=== PATIENT | male | born 1945 | race Caucasian/White ===

== ENCOUNTER 2023-06-22 11:51 | Emergency (ER) | payer MEDICARE ==
[~2023-06-22] VITALS: Ht 177.8 cm; Wt 78.2 kg
[2023-06-22 11:54] VITALS: TEMP 97.4
[2023-06-22 12:24] LABS: BASOPHILS # (AUTO) 0.1 X10'3 (0-0.2); EOSINOPHILS # (AUTO) 0.1 X10'3 (0-0.9); EOSINOPHILS % (AUTO) 0.7 % (0-6); HEMATOCRIT 48.6 % (42.0-52.0); HEMOGLOBIN 16.1 g/dl (14.0-17.9); LYMPHOCYTES # (AUTO) 0.8 X10'3 (1.1-4.8); LYMPHOCYTES % (AUTO) 8.2 % (21-51); MEAN CORPUSCULAR HEMOGLOBIN 30.4 PG (27.0-31.0); MEAN CORPUSCULAR HGB CONC 33.1 g/dL (33.0-36.5); MEAN PLATELET VOLUME 8.2 FL (7.4-10.4); MONOCYTES # (AUTO) 0.8 X10'3 (0-0.9); MONOCYTES % (AUTO) 7.9 % (2-12); NEUTROPHILS # (AUTO) 8.2 X10'3 (1.8-7.7); NEUTROPHILS % (AUTO) 82.2 % (42-75); PLATELET COUNT 295 X10'3 (140-440); RED BLOOD COUNT 5.29 X10'6 (4.70-6.10); RED CELL DISTRIBUTION WIDTH 13.8 % (11.5-14.5)
[2023-06-22 12:36] LABS: ALBUMIN 3.6 G/DL (3.4-5.0); ANION GAP 10 (8-16); BLOOD UREA NITROGEN 25 MG/DL (7-18); BUN/CREATININE RATIO 12.4 (10.0-20.0); CALCIUM 9.6 MG/DL (8.5-10.1); CHLORIDE 108 MMOL/L (99-107); CREATININE 2.01 MG/DL (0.60-1.10); GLUCOSE 135 MG/DL (70-104); LIPASE 33 U/L (16-77); POTASSIUM 4.1 MMOL/L (3.5-5.1); SODIUM 149 MMOL/L (135-145); TOTAL CARBON DIOXIDE 30.8 MMOL/L (24-32); eCRCL 31 ML/MIN; eGFR 32 ML/MIN
[2023-06-22] MEDS: normal saline 1000ML IV soln IVB ONE (15:13)
[2023-06-22 21:52] VITALS: BP 142/74; PULSE 78; RESP 18; O2SAT 98
== END 2023-06-22 21:55 | disposition home or self-care (01) ==
LOC: ER 11:52
DX: R19.09 Other intra-abdominal and pelvic swelling, mass and lump (principal); R19.02 Left upper quadrant abdominal swelling, mass and lump; N18.30 Chronic kidney disease, stage 3 unspecified
CPT/HCPCS: 36415; 71045; 74176; 74181; 80048; 83690; 84484; 85025; 93005; 99285; J7030